=== PATIENT | male | born 1980 | race Two or more races ===

== ENCOUNTER 2018-04-21 19:29 | Emergency (ER) | payer BC, OTHER ==
--- NOTE | 2018-04-21 19:37 | ER Document Report ---
HPI - HPI Patient complains to provider of: possible insect bite Onset: Yesterday Pain Level: Denies Context: 37 yo male noticed hard area left posterior waist line yesterday, itches, got bigger and red. No known bite. Associated Symptoms: None Exacerbated by: Denies Relieved by: Denies - ROS ROS below otherwise negative: Yes Systems Reviewed and Negative: Yes All other systems reviewed and negative Past Medical History - General Information source: Patient - Social History Smoking Status: Unknown if Ever Smoked Lives with: Family Family History: Reviewed & Not Pertinent - Medical History Medical History: Negative Surgical Hx: Negative - Immunizations Hx Diphtheria, Pertussis, Tetanus Vaccination: No - given today Vertical Provider Document - CONSTITUTIONAL Agree With Documented VS: Yes Exam Limitations: No Limitations General Appearance: No Apparent Distress - INFECTION CONTROL TRAVEL OUTSIDE OF THE [place] IN LAST 30 DAYS: No - NEURO Level of Consciousness: Awake Motor/Sensory: No Sensory Deficit - DERM Notes: 6 x 8 pink indurated lesion left lower back below the waist. No clearing, no bite henrique. Discharge - Discharge Clinical Impression: inflamed possible insect bite Condition: Good Disposition: HOME, SELF-CARE Instructions: Cephalexin ([facility]), Use of Diphenhydramine, Swollen Insect Bite or Sting ([facility]) Additional Instructions: cool compress Benadryl 25-50 mg every 4 hours for the itch Return to the emergency room if symptoms worsen, increased red, hot, tenderness , fever Antibiotics 4 times a day in case this is cellulitis Prescriptions: Cephalexin Monohydrate [Keflex 500 mg Capsule] 500 mg PO QID #28 capsule Referrals: LOCALMD,NO [NO LOCAL MD] - Follow up as needed
[2018-04-21 19:57] VITALS: BP 160/98
[2018-04-21] MEDS ORDERED: CEPHALEXIN 500 MG CAPSULE PO ONE (20:18)
== END 2018-04-21 20:30 | disposition home or self-care (01) ==
LOC: ER 19:29
DX: S30.860A Insect bite (nonvenomous) of lower back and pelvis, initial encounter (principal); W57.XXXA Bitten or stung by nonvenomous insect and other nonvenomous arthropods, initial encounter
CPT/HCPCS: 99281